=== PATIENT | female | born 1985 | race Caucasian/White ===

== ENCOUNTER 2018-04-07 23:11 | Outpatient (CLI) | payer OTHER ==
[2018-04-08] MEDS ORDERED: LACTATED RINGER'S 1,000 ML IV (00:33)
[2018-04-08] MEDS: LACTATED RINGER'S 1,000 ML IV ×3 (00:51→15:29)
[2018-04-08] MEDS ORDERED: LIDOCAINE 1% (MPF) 30 ML INJ INJ (01:00)
[2018-04-08] MEDS ORDERED: METHYLERGONOVINE 0.2 MG INJ IM (01:00)
[2018-04-08] MEDS ORDERED: MISOPROSTOL 200 MCG TAB PR (01:00)
[2018-04-08] MEDS ORDERED: CARBOPROST 250 MCG INJ IM (01:00)
[2018-04-08] MEDS ORDERED: BUTORPHANOL 2 MG INJ IV (01:00)
[2018-04-08] MEDS ORDERED: IBUPROFEN 600 MG TAB PO (01:00)
[2018-04-08] MEDS ORDERED: OXYTOCIN 30 UNITS/LR 500 ML IV ×3 (01:00)
[2018-04-08 01:04] LABS: ADD MAN DIFF? NO
[2018-04-08 01:06] LABS: WHITE BLOOD COUNT 8.2 10^3/ul (4.8-10.8)
[2018-04-08 01:06] LABS: BASOPHILS % 0.2 % (0.0-2.0); EOSINOPHILS % 0.5 % (0.0-7.0); HEMATOCRIT 33.9 % (37.0-47.0); HEMOGLOBIN 11.3 g/dl (12.0-16.0); LYMPHOCYTES # 1.8 10^3/ul (0.8-2.9); MEAN CORPUSCULAR HEMOGLOBIN 26.3 pg (29.0-33.0); MEAN CORPUSCULAR HGB CONC 33.3 g/dl (32.0-37.0); MEAN PLATELET VOLUME 11.7 fl (7.4-10.4); MONOCYTE # 0.5 10^3/ul (0.3-0.9); MONOCYTES % 6.3 % (0.0-11.0); NEUTROPHIL # 5.8 10^3/ul (1.6-7.5); NEUTROPHILS % 70.5 % (39.0-77.0); PLATELET COUNT 163 10^3/UL (140-415); RED BLOOD COUNT 4.29 10^6/ul (4.20-5.40); RED CELL DISTRIBUTION WIDTH 15.4 % (11.5-14.5)
[2018-04-08] MEDS: MISOPROSTOL 25 MCG CAPSULE PO ×3 (01:17→10:11)
[2018-04-08 01:26] LABS: INR 1.01; PROTIME 13.4 Sec (11.9-14.9)
[2018-04-08 01:27] LABS: PARTIAL THROMBOPLASTIN TIME 30.4 Sec (25.0-35.0)
[2018-04-08 01:55] LABS: HEPATITIS B SURFACE ANTIGEN NEGATIVE (NEGATIVE)
[2018-04-08 15:20] LABS: RAPID PLASMA REAGIN NONREACTIVE (NR)
== END 2018-04-08 17:45 | disposition home or self-care (01) ==
LOC: L-D 23:27 → OBT 23:11
DX: O61.9 Failed induction of labor, unspecified (principal); Z3A.39 39 weeks gestation of pregnancy
CPT/HCPCS: 76815; 85025; 85610; 85730; 86592; 86850; 86900; 86901; 87340

== ENCOUNTER 2018-04-11 01:25 | Inpatient (IN) | payer OTHER ==
[2018-04-11] MEDS: LACTATED RINGER'S 1,000 ML IV ×4 (02:40→11:40)
[2018-04-11 03:57] LABS: ADD MAN DIFF? NO
[2018-04-11 04:03] LABS: WHITE BLOOD COUNT 8.1 10^3/ul (4.8-10.8)
[2018-04-11 04:03] LABS: BASOPHILS % 0.4 % (0.0-2.0); EOSINOPHILS # 0.1 10^3/ul (0.0-0.5); EOSINOPHILS % 0.6 % (0.0-7.0); HEMATOCRIT 34.8 % (37.0-47.0); HEMOGLOBIN 11.5 g/dl (12.0-16.0); LYMPHOCYTES # 1.7 10^3/ul (0.8-2.9); LYMPHOCYTES % 20.5 % (15.0-51.0); MEAN CORPUSCULAR HEMOGLOBIN 26.1 pg (29.0-33.0); MEAN CORPUSCULAR VOLUME 79.1 fl (82.0-101.0); MONOCYTE # 0.5 10^3/ul (0.3-0.9); MONOCYTES % 6.3 % (0.0-11.0); NEUTROPHIL # 5.8 10^3/ul (1.6-7.5); NEUTROPHILS % 71.8 % (39.0-77.0); PLATELET COUNT 169 10^3/UL (140-415); RED CELL DISTRIBUTION WIDTH 15.1 % (11.5-14.5)
[2018-04-11 04:05] LABS: INR 1.09; PARTIAL THROMBOPLASTIN TIME 30.9 Sec (25.0-35.0); PROTIME 14.2 Sec (11.9-14.9); PT RATIO 1.1
[2018-04-11] MEDS ORDERED: LACTATED RINGER'S 1,000 ML IV (04:18)
[2018-04-11] MEDS ORDERED: FENTAnyl 2MCG/ML-ROPIV 0.2% 100 ML (04:25)
[2018-04-11] MEDS ORDERED: DIPHENHYDRAMINE 50 MG INJ IV (04:30)
[2018-04-11] MEDS ORDERED: ONDANSETRON 4 MG INJ IV (04:30)
[2018-04-11] MEDS ORDERED: OXYTOCIN 30 UNITS/LR 500 ML IV ×2 (04:30→12:30)
[2018-04-11] MEDS ORDERED: NALOXONE (0.4 MG/ML) INJ IV (04:30)
[2018-04-11] MEDS ORDERED: LIDOCAINE 1% (MPF) 30 ML INJ INJ (04:30)
[2018-04-11] MEDS ORDERED: METHYLERGONOVINE 0.2 MG INJ IM ×2 (04:30→12:30)
[2018-04-11] MEDS ORDERED: MISOPROSTOL 200 MCG TAB PR ×2 (04:30→12:30)
[2018-04-11] MEDS ORDERED: EPHEDrine SULFATE 50 MG/5 ML SYG IV (04:30)
[2018-04-11] MEDS ORDERED: CARBOPROST 250 MCG INJ IM ×2 (04:30→12:30)
[2018-04-11] MEDS ORDERED: IBUPROFEN 600 MG TAB PO (04:30)
[2018-04-11] MEDS ORDERED: FENTAnyl 2MCG/ML-ROPIV 0.2% 100 ML BAG EPI (04:30)
[2018-04-11] MEDS ORDERED: BUTORPHANOL 2 MG INJ IV (04:30)
[2018-04-11] MEDS: OXYTOCIN 30 UNITS/LR 500 ML IV ×4 (08:14→14:11)
[2018-04-11] MEDS ORDERED: DIBUCAINE 1% 30 GM OINT PR (12:30)
[2018-04-11] MEDS ORDERED: ZOLPIDEM 5 MG TAB PO (12:30)
[2018-04-11] MEDS ORDERED: NACL 0.9% 3 ML SYG IV (12:30)
[2018-04-11] MEDS: IBUPROFEN 600 MG TAB PO (13:27)
[2018-04-11] MEDS: WITCH HAZEL/GLYCERIN PAD PR (17:05)
[2018-04-11] MEDS: BENZOCAINE 20% 56 ML SPRAY TOP (17:05)
[2018-04-11] MEDS: HYDROCODONE/APAP (5/325) TAB PO ×2 (17:08→21:11)
[2018-04-11 17:22] LABS: RAPID PLASMA REAGIN NONREACTIVE (NR)
[2018-04-11] MEDS: SENNA/DOCUSATE NA (8.6MG/50MG) TAB PO (21:11)
[2018-04-12] MEDS: IBUPROFEN 600 MG TAB PO ×4 (05:28→17:50)
[2018-04-12] MEDS: HYDROCODONE/APAP (5/325) TAB PO ×3 (08:26→22:37)
[2018-04-12] MEDS: LANOLIN 7 GM TUBE TOP (08:26)
[2018-04-12] MEDS: SENNA/DOCUSATE NA (8.6MG/50MG) TAB PO ×2 (08:26→21:40)
[2018-04-12 09:29] LABS: ADD MAN DIFF? NO
[2018-04-12 09:33] LABS: BASOPHILS % 0.3 % (0.0-2.0); EOSINOPHILS # 0.1 10^3/ul (0.0-0.5); EOSINOPHILS % 0.9 % (0.0-7.0); HEMATOCRIT 35.6 % (37.0-47.0); HEMOGLOBIN 11.6 g/dl (12.0-16.0); MEAN CORPUSCULAR HEMOGLOBIN 26.3 pg (29.0-33.0); MEAN CORPUSCULAR HGB CONC 32.6 g/dl (32.0-37.0); MEAN CORPUSCULAR VOLUME 80.7 fl (82.0-101.0); MEAN PLATELET VOLUME 12.1 fl (7.4-10.4); MONOCYTE # 0.5 10^3/ul (0.3-0.9); MONOCYTES % 5.4 % (0.0-11.0); NEUTROPHIL # 6.6 10^3/ul (1.6-7.5); NEUTROPHILS % 71.1 % (39.0-77.0); PLATELET COUNT 158 10^3/UL (140-415); RED BLOOD COUNT 4.41 10^6/ul (4.20-5.40); RED CELL DISTRIBUTION WIDTH 15.2 % (11.5-14.5)
[2018-04-12 09:33] LABS: WHITE BLOOD COUNT 9.3 10^3/ul (4.8-10.8)
[2018-04-12 10:22] LABS: HEPATITIS B SURFACE ANTIGEN NEGATIVE (NEGATIVE)
[2018-04-12] MEDS: LACTATED RINGER'S 1,000 ML IV ×2 (12:18→20:18)
[2018-04-12] MEDS: BENZOCAINE 20% 56 ML SPRAY TOP (12:38)
[2018-04-12] MEDS: WITCH HAZEL/GLYCERIN PAD PR (12:38)
[2018-04-13] MEDS: IBUPROFEN 600 MG TAB PO ×4 (00:01→18:00)
[2018-04-13] MEDS: WITCH HAZEL/GLYCERIN PAD PR (05:56)
[2018-04-13] MEDS: BENZOCAINE 20% 56 ML SPRAY TOP (05:57)
[2018-04-13] MEDS: HYDROCODONE/APAP (5/325) TAB PO (09:11)
[2018-04-13] MEDS: SENNA/DOCUSATE NA (8.6MG/50MG) TAB PO (09:11)
[2018-04-13] MEDS: DIPHTH/TET/ACEL PERTUSS (ADULT) 0.5 ML VIAL IM* (18:25)
== END 2018-04-13 19:06 | disposition home or self-care (01) | DRG 775 ==
LOC: OBT 01:25 → L-D 01:25 → OBT 01:59 → L-D 01:59 → PP1 13:51
PROVIDERS: Obstetrics & Gynecology
PROC: 10E0XZZ Delivery of Products of Conception, External Approach (ICD-10-PCS; principal; 2018-04-11)
PROC: 0KQM0ZZ Repair Perineum Muscle, Open Approach (ICD-10-PCS; 2018-04-11)
PROC: 3E033VJ Introduction of Other Hormone into Peripheral Vein, Percutaneous Approach (ICD-10-PCS; 2018-04-11)
DX: O70.1 Second degree perineal laceration during delivery (principal); Z37.0 Single live birth; O69.81X0 Labor and delivery complicated by cord around neck, without compression, not applicable or unspecified; Z3A.39 39 weeks gestation of pregnancy
CPT/HCPCS: 62319; 76815; 85025; 85610; 85730; 86592; 86850; 86900; 86901; 87340; 90715; 93970; 99464